=== PATIENT | female | born 1975 | race Caucasian/White ===

== ENCOUNTER 2016-06-28 12:41 | Emergency (ER) | payer OTHER | END 2016-06-28 15:37 | disposition home or self-care (01) | LOC: FER 12:41 | DX: J10.1 Influenza due to other identified influenza virus with other respiratory manifestations (principal); G43.909 Migraine, unspecified, not intractable, without status migrainosus; G40.909 Epilepsy, unspecified, not intractable, without status epilepticus; F31.9 Bipolar disorder, unspecified; F41.9 Anxiety disorder, unspecified; Z88.0 Allergy status to penicillin; Z88.1 Allergy status to other antibiotic agents; Z88.6 Allergy status to analgesic agent; Z79.899 Other long term (current) drug therapy | CPT/HCPCS: 87804; 87899; J1885; J2405; J2765 ==

== ENCOUNTER 2016-09-20 22:18 | Emergency (ER) | payer OTHER ==
[2016-09-20 23:40] LABS: BASOPHIL 0.3 % (0-2); EOSINOPHIL 0.4 % (0-5); HCT 41.9 % (37.0-47.0); HGB 14.4 g/dl (12.5-16.0); LYMPHOCYTE 29.7 % (15-48); MCH 27.6 pg (25.0-31.0); MCHC 34.4 g/dL (32.0-36.0); MCV 80.4 fL (78.0-100.0); MONOCYTE 10.9 % (0-12); MPV 10.5 fL (6.0-9.5); NEUTROPHIL 58.7 % (41-80); PLT 295 K/uL (150-400); RBC 5.21 M/uL (4.20-5.40); RDW 13.9 % (11.5-14.0); WBC 7.3 K/uL (4.0-10.5)
[2016-09-21 00:06] LABS: BILIRUBIN 1+ mg/dL (NEGATIVE); BLOOD NEGATIVE Ery/uL (NEGATIVE); COLOR YELLOW (YELLOW); GLUCOSE (U) NORMAL (NORMAL); KETONE (U) TRACE mg/dL (NEGATIVE); LEUKOCYTES NEGATIVE Leu/uL (NEGATIVE); NITRITE NEGATIVE (NEGATIVE); PROTEIN NEGATIVE (NEGATIVE); SPECIFIC GRAVITY >=1.030 (1.001-1.030); UROBILINOGEN 0.2 mg/dL (0.2-1.0)
[2016-09-21 00:07] LABS: CLARITY SLIGHTLY HAZY (CLEAR)
[2016-09-21 00:11] LABS: ALBUMIN 4.7 g/dL (3.5-5.0); BILIRUBIN - TOTAL 0.3 mg/dL (0.1-1.0); GLOBULIN (CALCULATION) 2.4 g/dL (2.2-4.2); POTASSIUM 2.7 mmol/L (3.5-5.1); TOTAL PROTEIN 7.1 g/dL (6.4-8.3)
== END 2016-09-21 01:40 | disposition home or self-care (01) ==
LOC: FER 22:18
PROVIDERS: Emergency Medicine Emergency Medical Services
DX: E87.6 Hypokalemia (principal); I10 Essential (primary) hypertension; E03.9 Hypothyroidism, unspecified; G40.909 Epilepsy, unspecified, not intractable, without status epilepticus; F31.30 Bipolar disorder, current episode depressed, mild or moderate severity, unspecified; Z87.19 Personal history of other diseases of the digestive system; Z88.0 Allergy status to penicillin; Z88.1 Allergy status to other antibiotic agents; Z79.899 Other long term (current) drug therapy
CPT/HCPCS: 36415; 80053; 81003; 85025; 93005

== ENCOUNTER 2020-09-09 20:03 | Emergency (ER) | payer MEDICARE, OTHER ==
[~2020-09-09 20:03] MED LIST: ABILIFY MAINTE300 MG IM; AMITRIPTYLINE 225 MG PO; ANESTHETIC BU; BENTYL10 MG PO; CLEOCIN300 MG PO; IMITREX100 MG PO; PERCOCET 5-3251 EACH PO; PROPRANOLOL HCL80 M1 PO; PROZAC20 MG PO; TOPAMAX200 MG PO; TRAZODONE HYDROCHLOR PO; TRIAMCINOLONE ACETON TOP; ZANTAC150 MG PO
== END 2020-09-10 04:00 | disposition home or self-care (01) ==
LOC: FER 20:03
DX: R51.9 Headache, unspecified (principal); R11.2 Nausea with vomiting, unspecified; Z88.0 Allergy status to penicillin; Z88.1 Allergy status to other antibiotic agents
CPT/HCPCS: 96372; 99283; J0780; J1200